=== PATIENT | female | born 1995 | race Caucasian/White ===

== ENCOUNTER 2016-11-25 01:51 | Inpatient (IN) | payer MEDICAID ==
[~2016-11-25] VITALS: Ht 154.9 cm; Wt 136.5 kg
[2016-11-25 05:41] VITALS: BP 149/84
[2016-11-25] MEDS ORDERED: LABETALOL 100M100 MG PO (05:46)
[2016-11-25] MEDS ORDERED: LABETALOL HYDR200 M1 PO (05:49)
[2016-11-25] MEDS ORDERED: PRENATAL PLUS1 TA1 PO (05:50)
[2016-11-25] MEDS ORDERED: ZYRTEC ALLERGY10 MG PO (05:50)
--- NOTE | 2016-11-25 05:58 | ACUTE CARE PROGRESS NOTE (QUA) ---
Progress Notes Subjective Date 11/25/16 Time 0554 Assessment/Plan This inpt stay is expected to cross 2 MNs from start of care Yes (OB delivery) Comments: This 21-year-old obese (297 pounds) 1, para 0, AB 0 white female is admitted at 39-2/7 weeks with irregular contractions. She has been on labetalol during her because of hypertension, and her blood pressure this morning is 146/84. Her deep tendon reflexes are normal. Her cervix is 75 percent effaced, 2 cm dilated, with a high presenting vertex. The plan is to augment with intravenous Pitocin and a vaginal delivery is anticipated. at 6322
[2016-11-25 06:46] LABS: HEMOGLOBIN 12.7 g/dL (12.2-16.2); LYMPH # 2.5 K/mm3 (0.7-4.5); LYMPH % 23.4 % (10-50.0)
[2016-11-25 06:49] LABS: ABO BLOOD TYPE A; RH BLOOD TYPE POSITIVE
--- NOTE | 2016-11-25 07:17 | ACUTE CARE PROGRESS NOTE (QUA) ---
Progress Notes Subjective Date 11/25/16 Time 0715 Note Contractions are irregular on intravenous Pitocin. Cervix is 80 percent, 2-3 cm, presenting vertex is still high. The patient may have an epidural when she wishes. Assessment/Plan This inpt stay is expected to cross 2 MNs from start of care Yes (OB delivery) at 0716
--- NOTE | 2016-11-25 09:13 | ACUTE CARE PROGRESS NOTE (QUA) ---
Progress Notes Subjective Date 11/25/16 Time 0912 Note Epidural is in situ and working well. Patient's cervix is now 3-4 cm, 90 percent , -2 vertex. Neopoly reveals clear fluid, and an internal monitor has been placed. She is on intravenous Pitocin. Assessment/Plan This inpt stay is expected to cross 2 MNs from start of care Yes (OB delivery) at 0913
--- NOTE | 2016-11-25 11:39 | ACUTE CARE PROGRESS NOTE (QUA) ---
Progress Notes Subjective Date 11/25/16 Time 1138 Note Cervix is now 100 percent, 4 cm, presenting part still at -2 station. Contractions are stronger times, not so much at other times, Pitocin is being adjusted. Her epidural is no longer working and anesthesia has been consulted. Assessment/Plan This inpt stay is expected to cross 2 MNs from start of care Yes (OB delivery) at 1132
--- NOTE | 2016-11-25 13:26 | ACUTE CARE PROGRESS NOTE (QUA) ---
Progress Notes Subjective Date 11/25/16 Time 1324 Note Epidural has been replaced and is now working well. Cervix is 4-5 cm, 90 percent , with the vertex still somewhat high. Plan, observe. Assessment/Plan This inpt stay is expected to cross 2 MNs from start of care Yes (OB delivery) at 1326
--- NOTE | 2016-11-25 14:46 | ACUTE CARE PROGRESS NOTE (QUA) ---
Progress Notes Subjective Date 11/25/16 Time 1444 Note The patient is having good contractions. Cervix remains unchanged. I've discussed the possibility of with the patient and her family. The plan is to observe for another hour or so before making that decision. They understand and accept likelihood of an operative delivery. Assessment/Plan This inpt stay is expected to cross 2 MNs from start of care Yes (OB delivery) at 7462
--- NOTE | 2016-11-25 15:48 | ACUTE CARE PROGRESS NOTE (QUA) ---
Progress Notes Subjective Date 11/25/16 Time 1547 Note In spite of good contractions, still no change in cervical dilatation or descent. I discussed this with the patient and her family. The plan is for a primary section. Intravenous Pitocin has been discontinued. Assessment/Plan This inpt stay is expected to cross 2 MNs from start of care Yes (OB delivery) at 2589
--- NOTE | 2016-11-25 17:50 | Operative Note ---
Procedure/Operative Record Date of Procedure: 11/25/16 Referring physician: Dr. Wilkins Pre-op diagnosis: 1. Term intrauterine . 2. Cephalopelvic disproportion. 3. The station hypertension. Post-op diagnosis: 1. Term intrauterine . 2. Cephalopelvic disproportion. 3. Gestational hypertension. 9/9, 8 lbs. 6 oz., 20 inch male with nuchal cord 1, born at 1648. Procedure performed: Primary low transverse cervical section. Surgeon: Angel Watson Ice Cream Maker(s): Dr. Soto Anesthesia: Spinal, CHAIRMAN [employer] CHIEF EXECUTIVE OFFICER Racquel Indications: 1. Term intrauterine . 2. Cephalopelvic disproportion. Description of procedure: After the patient was prepped and draped in the usual fashion and spinal anesthesia was administered (the epidural was nonfunctioning), a low Pfannenstiel incision was made across the midline, and the fat and fascia were in the usual fashion, bleeders being clamped and coagulated along the way. The peritoneum was entered with a knife, and extended above and below with Metzenbaum scissors. The bladder peritoneum was sharply and bluntly dissected from the area of incision, and the bladder was protected with a bladder blade. The uterus was entered in low transverse fashion with a knife, and the incision was extended bluntly, bilaterally. The amniotic fluid was clear. The baby was found to be in the LOP position of the vertex and, with appropriate fundal pressure, the head was easily delivered. There was a nuchal cord 1, which was easily reduced. The baby's naso-and oropharynx were bulb suctioned, and the baby cried spontaneously, on the abdomen, as was delivered. The cord was clamped and cut, 3 vessels were noted to be within the cord, and cord blood was obtained. The cord pH was 7.36. The baby was handed into the arms of the attending transport conductor, Dr. Wilkins, who assigned Apgars of 9 at 1 minute and 9 at 5 minutes to this 8 lbs. 6 oz., 20 inch male , born at 1648. The baby was then taken to the nursery in excellent condition, along with the father, who had been present in the operating room. The placenta was delivered manually, intact. A ring forceps was used to assure adequate drainage to the cervix; this was then passed off the field, as an unsterile instrument. The uterus was closed in 2 layers, the first a running locked suture of #1 Vicryl as an endometrial layer, followed by a running unlocked suture of #1 Vicryl as a myometrial layer, imbricating over the first. The bladder peritoneum was closed with a running unlocked suture of 2-0 Vicryl. Blood and clots within swept from the gutters, and the tubes and ovaries were inspected and found to be normal. The peritoneum was grasped with 3 Romelia clamps, and closed with a running semi-locked suture of 0 Vicryl. The muscle was approximated with a running unlocked suture of 0 Vicryl. The fascia was closed with a running locked suture of #1 Vicryl. The subcutaneous fat and Kurtis's fascia were closed with a running unlocked suture of 2-0 Vicryl. The skin was closed with a subcuticular suture of 3-0 Vicryl, and appropriately dressed. The sponge and needle counts correct. The urine was clear in the Otth catheter. The estimated blood loss was 400 mL. A pelvic exam at the close of the procedure express blood and clots from the involuting uterus, with IV Pitocin running. The patient tolerated the procedure well, and was taken to PACU in excellent condition. Her blood type is A positive. Her rubella titer is immune. She plans to breast-feed. EBL (ml): 400 Complications: None Specimens: None at 1750
[2016-11-25 19:40] VITALS: BP 123/69
--- NOTE | 2016-11-26 06:47 | ACUTE CARE PROGRESS NOTE (QUA) ---
Progress Notes Subjective Date 11/26/16 Time 0646 Note This is postop/ day number 1. The patient is afebrile. Her vital signs are stable. Her blood pressure is 136/84. Reflexes are normal. Her Toth has been removed and she is voiding well. Abdomen soft. Lochia normal. Uterine fundus involuting well. Wound clean. Impression: Stable. Assessment/Plan This inpt stay is expected to cross 2 MNs from start of care Yes (OB delivery) at 0647
[2016-11-26 08:04] LABS: HEMOGLOBIN 10.4 g/dL (12.2-16.2)
[2016-11-26 08:20] VITALS: BP 145/68
--- NOTE | 2016-11-26 16:01 | ACUTE CARE PROGRESS NOTE (QUA) ---
Progress Notes Subjective Date 11/26/16 Time 1600 Note The patient is afebrile. Vital signs stable. Wound clean. Abdomen soft. Lochia normal. Uterine fundus involuting well. She is eating and ambulating. She will be managed by Dr. Mercado over the weekend. She will likely be discharged in 2 days. Assessment/Plan This inpt stay is expected to cross 2 MNs from start of care Yes (OB delivery) at 1601
[2016-11-26 19:59] VITALS: BP 140/83
[2016-11-27 08:30] VITALS: BP 137/82
--- NOTE | 2016-11-27 13:36 | PHARMACY CLINIC NOTE ---
Patient Demographics Patient Demographics Admission date: 11/25/16 Date: 11/27/16 Time: 1336 Allergies Coded Allergies: cephalexin (From KEFLEX) (11/25/16) penicillin G (11/25/16) HEIGHT- FT: 5 IN: 1.00 K.533 VTE General Information Disclaimer The following section includes nursing documentation that has been pulled in for pharmacy review. VTE prophylaxis NQF 0371 VTE prophylaxis ordered? Yes Type of prophylaxis/treatment: ICD at 8059
--- NOTE | 2016-11-27 14:40 | ACUTE CARE PROGRESS NOTE (QUA) ---
Progress Notes Subjective Date 11/27/16 Time 1438 Note This is /postop day number 2. Due to a communication glitch, Dr. Mercado ([facility]) did not arrive. Therefore, I am making late rounds. The patient is afebrile. Vital signs stable. Wound clean. Abdomen soft. Lochia normal. Uterine fundus involuting well. Blood pressure 138/72. Deep tendon reflexes normal. Impression: Stable and improving. Assessment/Plan This inpt stay is expected to cross 2 MNs from start of care Yes (OB delivery) at 1859
--- NOTE | 2016-11-27 14:40 | ACUTE CARE PROGRESS NOTE (QUA) ---
Progress Notes Subjective Date 11/27/16 Time 1438 Note This is /postop day number 2. Due to a communication glitch, Dr. Mercado ([facility]) did not arrive. Therefore, I am making late rounds. The patient is afebrile. Vital signs stable. Wound clean. Abdomen soft. Lochia normal. Uterine fundus involuting well. Blood pressure 138/72. Deep tendon reflexes normal. Impression: Stable and improving. Assessment/Plan This inpt stay is expected to cross 2 MNs from start of care Yes (OB delivery) at 6885
[2016-11-27 19:46] VITALS: BP 146/77
--- NOTE | 2016-11-28 07:34 | ACUTE CARE PROGRESS NOTE (QUA) ---
Progress Notes Subjective Date 11/28/16 Time 0733 Note This is /postop day number 3. The patient is afebrile. Vital signs stable. Wound clean. Abdomen soft. Lochia normal. Uterine fundus has involuted well. Hemoglobin 10.4 g, but clinically stable. She will be discharged today. Assessment/Plan This inpt stay is expected to cross 2 MNs from start of care Yes (OB delivery) at 0798
--- NOTE | 2016-11-28 07:38 | DISCHARGE SUMMARY STANDARD ---
Discharge Summary Date of admission: 11/25/16 Date of discharge: 11/28/16 Patient condition: Stable Discharge diagnosis (es): 1. Term intrauterine , delivered. 2. -induced hypertension. 3. Cephalopelvic disproportion. 4. Anemia. Hospital course: This 21-year-old 1, now para 1, AB 0 white female was admitted at 39-2/7 weeks with irregular contractions at 2 cm of dilatation. She had been on labetalol for -induced hypertension, but her blood pressure was stable throughout her labor and delivery. She labored under labor epidural, which worked well. She did not, however, progressed steadily, and never got beyond 4-5 cm of dilatation. The vertex did not descend well. Ultimately, she was taken to the operating room, where she underwent a primary low transverse cervical section under spinal anesthesia (her epidural failed at that point), resulting in the of an 9/9, 8 lbs. 6 oz., 20 inch male infant, with nuchal cord 1. The baby was born at 1648 on 11/25/16. The baby is breast-feeding, has been circumcised, and has done well. and postoperatively, the patient has done well. She is eating and ambulating, and has had a bowel movement. Her wound is clean. Her abdomen is soft. Her uterine fundus has involuted well. Her lochia is normal. Her hemoglobin on admission was 12.7 g; postoperatively it is 10.4 g, but she is clinically stable. She is discharged home on the third /postoperative day on iron and vitamins, and on Percocet 7.5/325 (number 30), 1 by mouth every 6 hours when necessary pain. She is given appropriate instructions as to diet, exercise, and wound care , and she is to return to the office in 2 weeks for follow-up. Her blood type is A positive. Her rubella titer is immune. at 2852
[2016-11-28] MEDS ORDERED: ENDOCET 325 MG-1 TA2 PO (07:41)
[2016-11-28 08:19] VITALS: BP 134/77
== END 2016-11-28 11:49 | disposition home or self-care (01) | DRG 766 ==
LOC: OB 01:51
PROVIDERS: Obstetrics & Gynecology
PROC: 10D00Z1 Extraction of Products of Conception, Low, Open Approach (ICD-10-PCS; principal; 2016-11-25 16:15)
DX: O13.4 Gestational [pregnancy-induced] hypertension without significant proteinuria, complicating childbirth (principal); O65.9 Obstructed labor due to maternal pelvic abnormality, unspecified; Z3A.39 39 weeks gestation of pregnancy; Z37.0 Single live birth; O69.81X0 Labor and delivery complicated by cord around neck, without compression, not applicable or unspecified
CPT/HCPCS: J0131; J2405

== ENCOUNTER 2017-04-21 22:12 | Emergency (ER) | payer OTHER ==
[~2017-04-21] VITALS: Ht 157.5 cm; Wt 122.5 kg
[~2017-04-21 22:12] MED LIST: ENDOCET 325 MG-1 TA2 PO; LABETALOL 100M100 MG PO; LABETALOL HYDR200 M1 PO; PRENATAL PLUS1 TA1 PO; ZYRTEC ALLERGY10 MG PO
--- OUTSIDE RECORDS SUMMARY | 2017-04-21 22:21 | External Medical Summary Rpt ---
Author Author , BRYCE Pompa BRYCE Address Unknown Phone [email or web address] Purpose Continuity of Care Document - 08-04-2013 through 2016 Problems Code Diagnosis DOS Provider Status R10.9 UNSPECIFIED ABDOMINAL PAIN Results Labs Lab Lab Date Result Refere Interp Status Commen Order Detail nces retati t Range on Urinalysis dipstick W Reflex Microscopic panel in Urine (03-09-2017 04:25) Amorpho OCC NONE complet us 017 ed sedimen 04:25 t [Presen ce] in Urine sedimen t by Light microsc opy Bacteri 1+ O complet a 017 ed [Presen 04:25 ce] in Urine sedimen t by Light microsc opy Mucus 1+ OCC complet [Presen 017 ed ce] in 04:25 Urine sedimen t by Light microsc opy Epithel 5-10 0#/hp complet ial 017 f - ed cells.s 04:25 5#/hp quamous f [Presen ce] in Urine sedimen t by Microsc opy high power field Leukocy 3-5 O complet marlen 017 wbc/hpf ed [#/volu 04:25 me] in Urine Urinalysis dipstick W Reflex Microscopic panel in Urine (03-09-2017 04:25) Appeara CLEAR CLEAR complet nce of 017 ed Urine 04:25 Bilirub NEGATIV NEG complet in 017 E ed [Presen 04:25 ce] in Urine by Test strip Erythro 1+ NEG Abnorma complet cytes 017 l ed [Presen 04:25 ce] in Urine Color YELLOW YELLOW complet of 017 ed Urine 04:25 Ketones NEGATIV NEG complet 017 E ed [Presen 04:25 ce] in Urine by Automat ed test strip Mucus TRACE NEG Abnorma complet [Presen 017 l ed ce] in 04:25 Urine sedimen t by Light microsc opy Nitrite NEGATIV NEG complet 017 E ed [Presen 04:25 ce] in Urine by Test strip Urobili 0.2 NEG complet nogen 017 ed [Presen 04:25 ce] in Urine by Test strip
--- OUTSIDE RECORDS SUMMARY | 2017-04-21 22:21 | External Medical Summary Rpt ---
Author Author , BRYCE Pompa BRYCE Address Unknown Phone [email or web address] Purpose Continuity of Care Document - 08-04-2013 [...]
--- OUTSIDE RECORDS SUMMARY | 2017-04-21 22:22 | External Medical Summary Rpt ---
Demographics Preferred Language Romansh Marital Status Unknown Presybeterian Affiliation Unknown Race Unknown Ethnic Group Unknown Author Author BRYCE Address Unknown Phone Immunization Unable to retrieve immunization data due to connection failure with Immunization Registry. Please try again later.
--- OUTSIDE RECORDS SUMMARY | 2017-04-21 22:22 | External Medical Summary Rpt ---
Author Author BRYCE Croft, [employer] Organization [employer] Address Unknown Phone Unavailable Results Amylase [Enzymatic activity/volume] in Serum or Plasma Observa Value Referen Units Interpr Notes Date tion ce etation Range Amylase 25 - 115 U/L Normal No Feb 14 [Enzymati informati 2017 4:25 c on in AM activity/ source volume] data in Serum or Plasma Comprehensive metabolic 2000 panel in Serum or Plasma Observa Value Referen Units Interpr Notes Date tion ce etation Range Albumin/G 1.1 - 1.8 No Low No Feb 14 lobulin informati informati 2016 4:25 [Mass on in on in AM ratio] in source source Serum or data data Plasma Albumin 3.4 - 5.0 gm/dL Normal No Feb 14 [Mass/vol informati 2016 4:25 ume] in on in AM Serum or source Plasma data Alkaline 46 - 116 U/L High No Feb 14 phosphata informati 2017 4:25 se on in AM [Enzymati source c data activity/ volume] in Serum or Plasma Bilirubin 0.2 - 1.0 mg/dL Normal No Feb 14 .total informati 2016 4:25 [Mass/vol on in AM ume] in source Serum or data Plasma Urea 7 - 18 mg/dL Normal No Feb 14 nitrogen informati 2017 4:25 [Mass/vol on in AM ume] in source Serum or data Plasma Calcium 8.5 - mg/dL Normal No Feb 14 [Mass/vol 10.1 informati 2017 4:25 ume] in on in AM Serum or source Plasma data Chloride 98 - 107 mmoL/L Normal No Feb 14 [Moles/vo informati 2017 4:25 lume] in on in AM Serum or source Plasma data Carbon 21.0 - mmoL/L Normal No Mar 09 dioxide, 32.0 informati 2017 4:25 total on in AM [Moles/vo source lume] in data Serum or Plasma Creatinin 0.55 - mg/dL Normal No Feb 14 e 1.02 informati 2017 4:25 [Mass/vol on in AM ume] in source Serum or data Plasma Creatinin 50 - 200 ML/MIN High No Feb 14 e renal informati 2016 4:25 clearance on in AM source predicted data by Cockcroft -Gault formula Estimated 59- ML/MIN No REFERENCE Feb 14 informati RANGE: 2017 4:25 glomerula on in >60 AM r source ML/MIN/1. filtratio data 73 SQUARE n rate METERSIf (GF this patient is -A merican, then multiply theresult by 1.210. Globulin 1.3 - 3.2 gm/dL High No Feb 14 [Mass/vol informati 2016 4:25 ume] in on in AM Serum source data Glucose 74 - 106 mg/dL Normal No Feb 14 [Mass/vol informati 2016 4:25 ume] in on in AM Serum or source Plasma data Potassium 3.5 - 5.1 mmoL/L Normal No Mar 09 inform2016 4:25 [Moles/vo on in AM lume] in source Serum or data Plasma Sodium 136 - 145 mmoL/L Normal No Feb 14 [Moles/vo informati 2016 4:25 lume] in on in AM Serum or source Plasma data Aspartate 15 - 37 U/L Low No Mar 09 informati 2016 4:25 aminotran on in AM sferase source [Enzymati data c activity/ volume] in Serum or Plasma Alanine 12 - 78 U/L Normal No Feb 14 aminotran informati 2016 4:25 sferase on in AM [Enzymati source c data activity/ volume] in Serum or Plasma Protein 6.4 - 8.2 gm/dL Normal No Feb 14 [Mass/vol informati 2016 4:25 ume] in on in AM Serum or source Plasma data Lipase [Enzymatic activity/volume] in Serum or Plasma Observa Value Referen Units Interpr Notes Date tion ce etation Range Lipase 73 - 393 U/L Normal No Feb 14 [Enzymati informati 2016 4:25 c on in AM activity/ source volume] data in Serum or Plasma CBC W Auto Differential panel in Blood Observa Value Referen Units Interpr Notes Date tion ce etation Range Basophils 0 - 0.2 K/MM3 Normal No Feb 14 informati 2016 4:25 [#/volume on in AM ] in source Blood by data Automated count Basophils 0.1 - 2.0 % Normal No Feb 14 /100 informati 2016 4:25 leukocyte on in AM s in source Blood by data Automated count Eosinophi 0.0 - 0.4 K/mm3 High No Feb 14 ls informati 2016 4:25 [#/volume on in AM ] in source Blood by data Automated count Eosinophi 0.1 - % Normal No Feb 14 ls/100 12.0 informati 2016 4:25 leukocyte on in AM s in source Blood by data Automated count Granulocy 1.8 - 7.8 K/mm3 Normal No Feb 14 marlen informati 2016 4:25 [#/volume on in AM ] in source Blood by data Automated count Granulocy 37.0 - % Normal No Feb 14 marlen/100 80.0 informati 2016 4:25 leukocyte on in AM s in source Blood by data Automated count Hematocri 37.0 - % Normal No Mar 09 t [Volume 47.0 informati 2016 4:25 on in AM Fraction] source of Blood data Hemoglobi 12.2 - g/dL No No Mar 09 n 16.2 informati informati 2016 4:25 [Mass/vol on in on in AM ume] in source source Blood data data Lymphocyt 0.7 - 4.5 K/mm3 Normal No Feb 14 es informati 2016 4:25 [#/volume on in AM ] in source Unspecifi data ed specimen by Automated count Lymphocyt 10 - 50.0 % Normal No Feb 14 es inform2016 4:25 [#/volume on in AM ] in source Unspecifi data ed specimen by Automated count Erythrocy 27 - 31.2 pg Normal No Feb 14 te mean informati 2016 4:25 corpuscul on in AM ar source hemoglobi data n [Entitic mass] Erythrocy 31.8 - g/dl Low No Mar 09 te mean 35.4 informati 2016 4:25 corpuscul on in AM ar source hemoglobi data n concentra tion [Mass/vol ume] by Automated count Erythrocy 82.2 - fl Normal No Feb 14 te mean 97.8 informati 2016 4:25 corpuscul on in AM ar volume source [Entitic data volume] by Automated count Monocytes 0.1 - 1.0 K/mm3 Normal No Feb 14 informati 2016 4:25 [#/volume on in AM ] in source Blood by data Automated count Monocytes 1.7 - 9.3 % Normal No Feb 14 /100 informati 2016 4:25 leukocyte on in AM s in source Blood by data Automated count Platelet 7.4 - fl Low No Feb 14 mean 10.4 informati 2016 4:25 volume on in AM [Entitic source volume] data in Blood by Automated count Platelets 142 - 424 K/mm3 High No Feb 14 informati 2016 4:25 [#/volume on in AM ] in source Blood data Erythrocy 4.2 - 5.4 M/mm3 Normal No Feb 14 marlen informati 2017 4:25 [#/volume on in AM ] in source Amniotic data fluid Erythrocy 11.5 - % Normal No Mar 09 te 17.5 informati 2016 4:25 distribut on in AM ion width source [Entitic data volume] by Automated count Leukocyte 4.8 - K/MM3 Normal No Mar 09 s 10.8 informati 2016 4:25 [#/volume on in AM ] in source Blood data Urinalysis dipstick W Reflex Microscopic panel in Urine Observa Value Referen Units Interpr Notes Date tion ce etation Range Appeara CLEAR CLEAR No No No Mar 09 nce of informa informa informa 2017 Urine tion in tion in tion in 4:25 AM source source source data data data Amorpho OCC NONE No No No Mar 09 us informa informa informa 2017 sedimen tion in tion in tion in 4:25 AM t source source source [Presen data data data ce] in Urine sedimen t by Light microsc opy Bacteri 1+ O No No No Mar 09 a informa informa informa 2016 [Presen tion in tion in tion in 4:25 AM ce] in source source source Urine data data data sedimen t by Light microsc opy Bilirub NEGATIV NEG No No No Mar 09 in E informa informa informa 2016 [Presen tion in tion in tion in 4:25 AM ce] in source source source Urine data data data by Test strip Erythro 1+ NEG No Abnorma No Feb 14 cytes informa l informa 2016 [Presen tion in tion in 4:25 AM ce] in source source Urine data data Color YELLOW YELLOW No No No Mar 09 of informa informa informa 2017 Urine tion in tion in tion in 4:25 AM source source source data data data Glucose NEG No No No Feb 14 [Mass/vol informati informati informati 2017 4:25 ume] in on in on in on in AM Urine by source source source Test data data data strip Ketones NEGATIV NEG mg/dL No No Feb 14 E informa informa 2017 [Presen tion in tion in 4:25 AM ce] in source source Urine data data by Automat ed test strip Mucus TRACE NEG No Abnorma No Feb 14 [Presen informa l informa 2016 ce] in tion in tion in 4:25 AM Urine source source sedimen data data t by Light microsc opy Mucus 1+ OCC No No No Mar 09 [Presen informa informa informa 2016 ce] in tion in tion in tion in 4:25 AM Urine source source source sedimen data data data t by Light microsc opy Nitrite NEGATIV NEG No No No Mar 09 E informa informa informa 2016 [Presen tion in tion in tion in 4:25 AM ce] in source source source Urine data data data by Test strip pH of 5.0 - 8.5 No Normal No Feb 14 Urine informati informati 2017 4:25 on in on in AM source source data data Protein NEG mg/dL No No Feb 14 [Mass/vol informati informati 2017 4:25 ume] in on in on in AM Urine by source source Automated data data test strip Specific 1.005 - No Normal No Feb 14 gravity 1.030 informati informati 2017 4:25 of Urine on in on in AM source source data data Epithel 5-10 0 - 5 #/hpf No No Mar 09 ial informa inform 2017 cells.s tion in tion in 4:25 AM quamous source source data data [Presen ce] in Urine sedimen t by Microsc opy high power field Urobili 0.2 NEG E.U./dL No No Mar 09 nogen informa informa 2017 [Presen tion in tion in 4:25 AM ce] in source source Urine data data by Test strip Leukocy [3 O wbc/hpf No No Feb 14 marlen wbc/hpf informa informa 2017 [#/volu ; 5 tion in tion in 4:25 AM me] in wbc/hpf source source Urine ] data data Choriogonadotropin.beta subunit [Units] in 24 hour Urine Observa Value Referen Units Interpr Notes Date tion ce etation Range Choriogon NEG No No No Mar 09 adotropin informati informati informati 2016 4:25 .beta on in on in on in AM subunit source source source [Units] data data data in 24 hour Urine Urinalysis dipstick W Reflex Microscopic panel in Urine Observa Value Referen Units Interpr Notes Date tion ce etation Range Appeara CLEAR CLEAR No No No Mar 09 nce of informa informa informa 2017 Urine tion in tion in tion in 4:25 AM source source source data data data Bilirub NEGATIV NEG No No No Mar 09 in E informa informa informa 2016 [Presen tion in tion in tion in 4:25 AM ce] in source source source Urine data data data by Test strip Erythro 1+ NEG No Abnorma No Mar 09 cytes informa l informa 2016 [Presen tion in tion in 4:25 AM ce] in source source Urine data data Color YELLOW YELLOW No No No Mar 09 of informa informa informa 2016 Urine tion in tion in tion in 4:25 AM source source source data data data Glucose NEG No No No Mar 09 [Mass/vol informati informati informati 2016 4:25 ume] in on in on in on in AM Urine by source source source Test data data data strip Ketones NEGATIV NEG mg/dL No No Mar 09 E informa informa 2016 [Presen tion in tion in 4:25 AM ce] in source source Urine data data by Automat ed test strip Mucus TRACE NEG No Abnorma No Feb 14 [Presen informa l informa 2016 ce] in tion in tion in 4:25 AM Urine source source sedimen data data t by Light microsc opy Nitrite NEGATIV NEG No No No Mar 09 E informa informa informa 2016 [Presen tion in tion in tion in 4:25 AM ce] in source source source Urine data data data by Test strip pH of 5.0 - 8.5 No Normal No Feb 14 Urine informati informati 2017 4:25 on in on in AM source source data data Protein NEG mg/dL No No Feb 14 [Mass/vol informati informati 2017 4:25 ume] in on in on in AM Urine by source source Automated data data test strip Specific 1.005 - No Normal No Mar 09 gravity 1.030 informati informati 2016 4:25 of Urine on in on in AM source source data data Urobili 0.2 NEG E.U./dL No No Mar 09 nogen informa informa 2017 [Presen tion in tion in 4:25 AM ce] in source source Urine data data by Test strip Chl/GC Urine Results Observa Value Referen Units Interpr Notes Date tion ce etation Range C. Urine No No No Test Aug 06 trachom informa informa informa methodo 2012 atis/N. tion in tion in tion in logy is 4:47 PM source source source gonorrh data data data amplifi oeae ed DNA Specime probe n using [employer] A negativ e result does not rule out the presenc e of DNA in concent rations below\. br\the level of detecti on of the assay.\ .br\\.b r\The perform ance charact eristic s of this test were validat ed by [facility] are Laborat ory. This laborat ory is authori sarah under the Clinica l\.br\L aborato ry Improve ment Amendme nts (CLIA) as qualifi ed to perform high-co mplexit y testing . Complia nce stateme nt is availab le in the Laborat ory.\.b r\\.br\ Extract ion of genetic materia l from urine and Thin Prep samples was perform ed using a method that was develop ed and validat ed in the perform ing laborat ory. Detaile d methodo logy is availab le upon request .\.br\\ .br\In rare instanc es, non-pat hogenic strains of Neisser ia may cross react and give a false positiv e result for N. gonorrh ea. If concern ed that this cross\. br\reac tivity has occurre d, please recolle ct and submit for genital culture prior to treatme nt.\.br \\.br\T he perform ance of this test has not been verifie d in minor aged patient s. This test is indicat ed for medical purpose s only. Chlamyd Negativ No No No No Aug 06 ia e informa informa informa informa 2013 trachom tion in tion in tion in tion in 4:47 PM atis source source source source [Presen data data data data ce] in Unspeci fied specime n by Enrique anglin specifi c culture Neisser Negativ No No No No Aug 06 ia e informa informa informa informa 2013 gonorrh tion in tion in tion in tion in 4:47 PM oeae source source source source [Presen data data data data ce] in Unspeci fied specime n by Enrique anglin specifi c culture
--- OUTSIDE RECORDS SUMMARY | 2017-04-21 22:22 | External Medical Summary Rpt ---
Demographics Preferred Language Albanian Marital Status Unknown Presybeterian Affiliation Unknown Race Unknown Ethnic Group Unknown Author Author BRYCE Address Unknown Phone Immunization Unable to retrieve immunization data due to connection failure with Immunization Registry. Please try again later.
--- OUTSIDE RECORDS SUMMARY | 2017-04-21 22:22 | External Medical Summary Rpt ---
[...] oeae ed DNA Specime probe n using [employer] A negativ e result does not rule out the presenc e of DNA in concent rations below\. br\the level of detecti on of the assay.\ .br\\.b r\The perform ance charact eristic s of this test were validat ed by [facility] are Laborat ory. This laborat ory [...]
[2017-04-21 22:36] LABS: URINE BILIRUBIN - DIPSTICK NEGATIVE (NEG); URINE BLOOD NEGATIVE (NEG)
--- NOTE | 2017-04-21 22:47 | Emergency Room Report ---
History of Present Illness Time Seen by [id number] Presenting Problem in Triage Pt arrived:Walked Presenting Problem:C/O EPIGASTRIC PAIN SAID IT FELT LIKE GAS PAIN SINCE APPROX 2029. NOW C/O NAUSEA. STATES SHE TOOK PEPTO AT 2029. 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 N Clinical Suspician of Infection? N Mental Status: 1 - Regular (Normal Baseline) Sepsis Risk:Possible Sepsis Risk Have you (or family members/close friends) recently traveled outside the [place]? N If Yes, where/when: Have you had exposure to infectious disease within the past month? N TB? Other? Specify: Source patient, RN notes reviewed, family, old records Exam Limitations no limitations Comment pt with upper abd pain with nausea with no diarrhea or melena over the last few days - breast feeding Cardiac Chest Pain Chest pain indicative of cardiac No Timing/Duration this evening Severity moderate ALLERGIES Coded Allergies: cephalexin (From KEFLEX) (11/25/16) penicillin G (11/25/16) Home Medications Reported Medications MISCELLANEOUS (UNKNOWN MEDICATION) 1 EACH PO DAILY Cetirizine Hcl (Zyrtec) 10 MG PO DAILY MULTIVIT-MIN W/FE-FA ( Multivitamin Tablet) 1 TAB PO DAILY History Medical History General CAD? No Angina: No MO: No Hypertension? No Hyperlipidemia? No CHF? No DVT? No PE? No COPD? No Asthma? No Anemia? No GERD? No Gastric ulcers? No GI Bleed? No Hernia? No Thyroid Problems? No Hypothyroidism? No CVA? No Seizures? No Diabetes? No Renal Insuffiency? No End Stage Renal Disease? No UTI? No Stones? No BPH? No GB Disease: No Nephritic Syndrome? No Asplenia? No Hepatitis? No Sickle Cell Disease? No Arthritis? No Migraines? No Cataracts? No Glaucoma? No MRSA? No HIV? No TB? No Anxiety? No Depression? No Cancer? No More? 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 Respiratory denies cough, denies shortness of breath, denies wheezing Cardiovascular denies chest pain, denies palpitations, denies syncope Gastrointestinal see HPI, abdominal pain, denies diarrhea, nausea, vomiting Genitourinary denies: dysuria, frequency, hesitancy, hematuria. Musculoskeletal denies back pain, denies joint pain, denies joint swelling, denies neck pain Skin denies rash Psychiatric/Neurological denies headache, denies seizure Physical Exam Vital Signs Vital Signs Date Time Temp Pulse Resp B/P Pulse O2 O2 Flow FiO2 Ox Delivery Rate 04/21 2255 20 04/217 98.3 96 20 143/92 99 - WBC >12,000 or <4,000 or 10% bands? 2 or more SIRS Criteria Met? B/P:143/92 MAP:109 Creatinine >2.0? UA output<0.5ml/kg/hr for 2 hrs? Platelet count >100,000? Lactate >2.0mmol/1? INR >1.2 or PTT > than 60 sec? Evidence of Organ Dysfunction? Provider documented clinical suspician of infection? N Sepsis Criteria Count: 2 Sepsis Risk: Possible Sepsis Risk General Appearance no apparent distress Eye Exam - bilateral eye PERRL, bilateral eye EOMI Ear, Nose, Throat normal ENT inspection Neck supple Respiratory Status No: respiratory distress. 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 No Results/Orders Laboratory Tests 04/21/172: Sodium 141, Potassium 3.5, Chloride 104, Carbon Dioxide 29, BUN 13, Creatinine 0.7, Estimated Creat Clear 244 H, Estimated GFR (MDRD) 105, Glucose 128 H, Calcium 9.2, Total Bilirubin 0.2, AST 19, ALT 26, Alkaline Phosphatase 174 H, Total Protein 8.4 H, Albumin 3.7, Globulin 4.7 H, Albumin/Globulin Ratio 0.8 L, Amylase 44, Lipase 174, WBC 8.8, RBC 4.54, Hgb 12.8, Hct 40.1, MCV 88.2, RDW 14.2, Plt Count 407, MPV 6.9 L, Gran % 61.6, Gran # 5.4, Lymphocytes % 30.4, Monocytes % 5.1, Eosinophils % 2.6, Basophils % 0.3, Lymphocytes # 2.7, Monocytes # 0.5, Eosinophils # 0.2, Basophils # 0.0, PUBS MCHC 31.9, MCH 28.2 04/21/172224: Urine Color YELLOW, Urine Appearance CLEAR, Urine pH 6.5, Ur Specific Stand[place] 1.025, Urine Protein NEGATIVE, Urine Ketones NEGATIVE, Urine Blood NEGATIVE, Urine Nitrate NEGATIVE, Urine Bilirubin NEGATIVE, Urine Urobilinogen 0.2, Ur Leukocyte Esterase 1+ H, Urine RBC OCC, Urine WBC 10-20, Ur Squamous Epith Cells 5-10, Amorphous Sediment 1+, Urine Bacteria 2+, Urine Glucose NEGATIVE Current Medication Orders Sig/Jonna Start time Last Medication Dose Route Stop Time Status Admin Ondansetron HCl 0 .STK-MED ONE 04/21 2247 DC .ROUTE Butorphanol Tartrate 0 .STK-MED ONE 04/21 2246 DC .ROUTE Butorphanol Tartrate 1 MG ONCE ONE 04/21 2245 DC 04/21 IM 04/21 2246 225 Ondansetron HCl 8 MG ONCE ONE 04/21 2245 DC 04/21 IV 04/21 2246 225 Sodium Chloride 10 ML PRN PRN 04/21 2230 AC IV 04/22 2227 Orders Procedure Date/time Status DIET-NOTHING BY MOUTH 04/[address] ABD & PELVIS W/O CONTRAST 04/[address] ABD REQUEST 04/21 2227 Complete IV SALINE LOCK 04/21 2227 Active URINALYSIS/COMPLETE 04/21 2227 Complete URINE 04/21 2227 Complete LIPASE 04/21 2227 Complete CBC WITH AUTO DIFF 04/21 2227 Complete CHEM 12 PROFILE 04/21 2227 Complete AMYLASE 04/21 2227 Complete CULTURE, URINE 04/21 2225 Active XRAY/CT/US XRAY/CT/US CT abdomen, pelvis CT interpretation by discussed w/radiologist Time results known: 2356 CT Results normal/NAD Departure Departure Time of Disposition 2351 Disposition DC Home or Self Care(routine) Clinical Impression Primary Impression: Abdominal pain Qualifiers: Abdominal location: epigastric Qualified Code: R10.13 - Epigastric pain Secondary Impressions: UTI (urinary tract infection) Qualifiers: Urinary tract infection type: acute cystitis Hematuria presence: without hematuria Qualified Code: N30.00 - Acute cystitis without hematuria Condition STABLE Referrals Julio Mclean MD (Family) Patient Instructions DI for Abdominal Pain-Adult Additional Instructions call your pcp to consider gb eval and also urine culture results Discharge Counseling Counseled pt/family regarding diagnosis, test results, medications/RX, follow up needs Prescriptions Current Visit Scripts ONDANSETRON HCL (Zofran 4MG Tab) 4 MG PO Q8HP PRN NAUSEA AND VOMITING #20 TAB NITROFURANTOIN MONOHYD/M-CRYST (Macrobid 100 MG Capsule) 100 MG PO BID #14 CAP ED Critical Care Critical Care No at 3082
[2017-04-21 23:09] LABS: HEMOGLOBIN 12.8 g/dL (12.2-16.2); LYMPH # 2.7 K/mm3 (0.7-4.5); LYMPH % 30.4 % (10-50.0)
[2017-04-21] MEDS ORDERED: MACROBID100 M3 PO (23:59)
[2017-04-21] MEDS ORDERED: ZOFRAN4 MG PO (23:59)
[2017-04-22 00:15] VITALS: BP 121/78
--- NOTE | 2017-04-22 06:43 | RADIOLOGY REPORT PS360 ---
CT ABD PELVIS W/O CONTRAST CLINICAL INDICATION: Epigastric pain, abdominal pain C/O EPIGASTRIC PAIN ORDERING PHYSICIAN: Lauren Robledo MD PATIENT AGE: 21 years COMPARISON: None TECHNIQUE: Axial images obtained with sagittal and coronal reformats. PROCEDURE: Oral Contrast: None IV Contrast: None . FINDINGS: Lower thorax: No acute finding ABDOMEN: Liver: No masses or biliary dilatation. Gallbladder: Nondistended. No radio opaque stones. Pancreas: No masses or peripancreatic fluid collections. Spleen: Unremarkable. Adrenals: Unremarkable Kidneys/ureters: No masses. No renal calculi. No hydronephrosis. No perinephric fluid collections. No ureteral dilatation or obvious ureteral calculi. Stomach bowel: Nondistended. No obvious mass or thickening. Appendix: No evidence of appendicitis. PELVIS: Reproductive: Unremarkable Bladder: Nondistended. No obvious stones or masses. ABDOMEN & PELVIS: Peritoneum: No abnormal fluid collections. No obvious inflammatory changes. No free air. Lymph nodes: No enlarged lymph nodes apparent. Vasculature: No evidence of abdominal aortic aneurysm. No retroperitoneal hemorrhage evident. Bones: No acute fracture IMPRESSION: Negative, no acute intra-abdominal or pelvic pathology apparent
== END 2017-04-22 00:17 | disposition home or self-care (01) ==
LOC: ER 22:12
PROVIDERS: Emergency Medicine
DX: K80.20 Calculus of gallbladder without cholecystitis without obstruction (principal)
CPT/HCPCS: J0595; J2405

== ENCOUNTER → 2017-05-10 | Outpatient (CLI) | payer OTHER ==
[~2017-05-10] MED LIST changes: +MACROBID100 M3 PO; +ZOFRAN4 MG PO
--- NOTE | 2017-05-10 13:42 | RADIOLOGY REPORT PS360 ---
[facility] HEPATOBILIARY SCAN HISTORY: ABDOMINAL PAIN ORDERING PHYSICIAN: Holland Enciso MD PATIENT AGE: 21 years COMPARISON: None DOSE: 8.0 mCi technetium Choletec. The patient greater in Ensure for fatty meal. No pain reported FINDINGS: Homogeneous activity is present within the hepatic parenchyma. Activity is present in the gallbladder by 15 minutes. Activity is present in the small bowel by fatty meal ingestion. The gallbladder ejection fraction is calculated to be 67% The patient did not report pain or other symptoms during CCK infusion. IMPRESSION: Unremarkable hepatobiliary scan and gallbladder ejection fraction. No evidence of common or cystic duct obstruction with normal gallbladder ejection fraction
== END ==
LOC: RAD 10:23
DX: R10.11 Right upper quadrant pain (principal)
CPT/HCPCS: A9537

== ENCOUNTER 2017-05-17 20:52 | Emergency (ER) | payer OTHER ==
[~2017-05-17] VITALS: Ht 157.5 cm; Wt 123.8 kg
--- NOTE | 2017-05-17 21:08 | Emergency Room Report ---
History of Present Illness Time Seen by [id number] Presenting Problem in Triage Pt arrived:Walked Presenting Problem:EPIGASTRIC PAIN STARTED AT 183. NAUSEATED. PT STATES SHE HAS BEEN SEEN 4 TIMES FOR SAME SXS. HAS HAD GALLBLADDER US, HIDA SCAN WHICH WAS NORMAL. 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 N Clinical Suspician of Infection? N Mental Status: 1 - Regular (Normal Baseline) Sepsis Risk:Possible Sepsis Risk Have you (or family members/close friends) recently traveled outside the [place]? N If Yes, where/when: Have you had exposure to infectious disease within the past month? N TB? Other? Specify: Source patient, RN notes reviewed, family, old records Exam Limitations no limitations Comment pt with recurrent rt upper abd pain with nausea but no fever or rash - she has had nondx eval thus far - Cardiac Chest Pain Chest pain indicative of cardiac No Timing/Duration this evening Severity moderate ALLERGIES Coded Allergies: cephalexin (From KEFLEX) (11/25/16) penicillin G (11/25/16) Home Medications Active Scripts ONDANSETRON HCL (Zofran 4MG Tab) 4 MG PO Q8HP PRN NAUSEA AND VOMITING #20 TAB Prov: 04/21/17 NITROFURANTOIN MONOHYD/M-CRYST (Macrobid 100 MG Capsule) 100 MG PO BID #14 CAP Prov: 04/21/17 Reported Medications MISCELLANEOUS (UNKNOWN MEDICATION) 1 EACH PO DAILY Cetirizine Hcl (Zyrtec) 10 MG PO DAILY MULTIVIT-MIN W/FE-FA ( Multivitamin Tablet) 1 TAB PO DAILY History Medical History General CAD? No Angina: No CO: No Hypertension? No Hyperlipidemia? No CHF? No DVT? No PE? No COPD? No Asthma? No Anemia? No GERD? No Gastric ulcers? No GI Bleed? No Hernia? No Thyroid Problems? No Hypothyroidism? No CVA? No Seizures? No Diabetes? No Renal Insuffiency? No End Stage Renal Disease? No UTI? No Stones? No BPH? No GB Disease: No Nephritic Syndrome? No Asplenia? No Hepatitis? No Sickle Cell Disease? No Arthritis? No Migraines? No Cataracts? No Glaucoma? No MRSA? No HIV? No TB? No Anxiety? No Depression? No Cancer? No More? 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 Respiratory denies cough, denies shortness of breath, denies wheezing Cardiovascular denies chest pain, denies palpitations, denies syncope Gastrointestinal see HPI, abdominal pain, denies diarrhea, nausea, vomiting Genitourinary denies: dysuria, frequency, hesitancy, hematuria. Musculoskeletal denies back pain, denies joint pain, denies joint swelling, denies neck pain Skin denies rash Psychiatric/Neurological denies headache, denies seizure Physical Exam Vital Signs Vital Signs Date Time Temp Pulse Resp B/P Pulse O2 O2 Flow FiO2 Ox Delivery Rate 05/17 2058 98.1 99 20 132/92 97 - WBC >12,000 or <4,000 or 10% bands? 2 or more SIRS Criteria Met? B/P:132/92 MAP:105 Creatinine >2.0? UA output<0.5ml/kg/hr for 2 hrs? Platelet count >100,000? Lactate >2.0mmol/1? INR >1.2 or PTT > than 60 sec? Evidence of Organ Dysfunction? Provider documented clinical suspician of infection? N Sepsis Criteria Count: 2 Sepsis Risk: Possible Sepsis Risk General Appearance no apparent distress Eye Exam - bilateral eye PERRL, bilateral eye EOMI Ear, Nose, Throat normal ENT inspection Neck supple Respiratory Status No: respiratory distress. Lung Sounds bilateral: lungs clear. 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 No Results/Orders Laboratory Tests 05/17/172220: Sodium 135 L, Potassium 3.9, Chloride 105, Carbon Dioxide 28, BUN 16, Creatinine 0.7, Estimated Creat Clear 246 H, Estimated GFR (MDRD) 105, Glucose 111 H, Calcium 8.7, Total Bilirubin 0.3, AST 46 H, ALT 39, Alkaline Phosphatase 179 H, Total Protein 8.0, Albumin 3.7, Globulin 4.3 H, Albumin/ Globulin Ratio 0.9 L, Amylase 43, Lipase 154 05/17/172129: WBC 15.2 H, RBC 4.43, Hgb 12.8, Hct 38.7, MCV 87.4, RDW 14.0, Plt Count 406, MPV 7.3 L, Gran % 82.6 H, Gran # 12.6 H, Total Counted 100, Lymphocytes % 12.3, Monocytes % 4.0, Eosinophils % 0.8, Basophils % 0.2, Neutrophils 78 H, Lymphocytes (Manual) 19, Lymphocytes # 1.9, Monocytes (Manual) 1 L, Monocytes # 0.6, Eosinophils # 0.1, Eosinophils # (Manual) 2, Basophils # 0.0, Platelet Estimate NORMAL, Hypochromasia 1+, Anisocytosis 1+, Stomatocytes 1+, PUBS MCHC 33.0, MCH 28.9 05/17/172058: Urine Color YELLOW, Urine Appearance CLEAR, Urine pH 6.0, Ur Specific [place] >= 1.030, Urine Protein NEGATIVE, Urine Ketones TRACE H, Urine Blood NEGATIVE, Urine Nitrate NEGATIVE, Urine Bilirubin NEGATIVE, Urine Urobilinogen 0.2, Ur Leukocyte Esterase NEGATIVE, Urine RBC NONE, Urine WBC OCC, Ur Squamous Epith Cells 5-10, Urine Bacteria 3+, Urine Mucus 3+, Urine Glucose NEGATIVE Current Medication Orders Sig/Jonna Start time Last Medication Dose Route Stop Time Status Admin Sodium Chloride 10 ML PRN PRN 05/17 2145 AC IV 05/18 2140 Sodium Chloride 10 ML PRN PRN 05/17 2145 AC IV 05/18 2140 Orders Procedure Date/time Status IV SALINE LOCK 05/17 2141 Active DIFFERENTIAL-WBC 05/17 2130 Complete URINALYSIS/COMPLETE 05/17 2107 Complete LIPASE 05/17 2107 Complete COMPLETE METABOLIC PANEL 05/17 2107 Complete CBC WITH AUTO DIFF 05/17 2107 Complete AMYLASE 05/17 2107 Complete CULTURE, URINE 05/17 2059 Active Departure Departure Time of Disposition 2314 Disposition DC Home or Self Care(routine) Clinical Impression Primary Impression: Abdominal pain Qualifiers: Abdominal location: right upper quadrant Qualified Code: R10.11 - Right upper quadrant pain Secondary Impressions: Leukocytosis Qualifiers: Leukocytosis type: unspecified Qualified Code: D72.829 - Elevated white blood cell count, unspecified Condition STABLE Referrals Julio Mclean MD (Family) discussed with dr fernandez Patient Instructions DI for Abdominal Pain-Adult Additional Instructions fluids and see pcp for follow up Discharge Counseling Counseled pt/family regarding diagnosis, test results, follow up needs ED Critical Care [place] 0511
[2017-05-17 21:15] LABS: URINE BILIRUBIN - DIPSTICK NEGATIVE (NEG); URINE BLOOD NEGATIVE (NEG)
[2017-05-17 21:57] LABS: HEMOGLOBIN 12.8 g/dL (12.2-16.2); LYMPH # 1.9 K/mm3 (0.7-4.5); LYMPH % 12.3 % (10-50.0)
[2017-05-17 22:21] LABS: NEUTROPHILS 78 % (42-76)
[2017-05-17 22:22] LABS: STOMATOCYTE 1+
[2017-05-17 23:28] VITALS: BP 124/88
== END 2017-05-17 23:29 | disposition home or self-care (01) ==
LOC: ER 20:52
PROVIDERS: Emergency Medicine
DX: R10.11 Right upper quadrant pain (principal); D72.829 Elevated white blood cell count, unspecified